=== PATIENT | male | born 1985 | race African-American/Black ===

== ENCOUNTER 2025-02-23 11:16 | Emergency (ER) | payer MEDICAID, SELFPAY ==
[2025-02-23 11:42] VITALS: BP 141/101
== END 2025-02-23 12:54 | disposition left against medical advice (07) ==
LOC: EMR 11:16
PROVIDERS: EMERGENCY PHYSICIAN Emergency Medicine
DX: M79.671 Pain in right foot (principal); Z53.21 Procedure and treatment not carried out due to patient leaving prior to being seen by health care provider
CPT/HCPCS: 73630